=== PATIENT | male | born 1990 | race Hispanic/Latino ===

== ENCOUNTER 2017-05-28 15:15 | Emergency (ER) | payer MEDICAID ==
[2017-05-28 16:04] LABS: Hematocrit 43.2 % (35.5-45.6); Hemoglobin 13.8 gm/dl (11.8-15.2); Mean Corpuscular HGB Conc 32 % (32-34); Mean Corpuscular Volume 79 fl (84-94); Platelet Count 347 K/mm3 (140-440); Red Blood Count 5.46 M/mm3 (3.65-5.03); Red Cell Distribution Width 15.8 % (13.2-15.2); White Blood Count 12.7 K/mm3 (4.5-11.0)
[2017-05-28 16:05] LABS: Mean Corpuscular Hemoglobin 25 pg (28-32)
[2017-05-28 16:06] LABS: Urine Drugs of Abuse Note Disclamer
[2017-05-28 16:12] LABS: Anion Gap 20 mmol/L; Blood Urea Nitrogen 15 mg/dL (9-20); Calcium 9.7 mg/dL (8.4-10.2); Carbon Dioxide 25 mmol/L (22-30); Chloride 97.6 mmol/L (98-107); Glucose 108 mg/dL (75-100); Sodium 139 mmol/L (137-145)
[2017-05-28 16:34] LABS: Bilirubin,Urine NEG (Negative); Blood,Urine NEG (Negative); Ketones,Urine NEG (Negative); Leukocyte Esterase,Urine NEG (Negative); Mucus,Urine FEW /HPF; Nitrite,Urine NEG (Negative); Urobilinogen,Urine < 2.0 mg/dL (<2.0); WBC,Urine < 1.0 /HPF (0.0-6.0)
[2017-05-28 17:03] LABS: Blastocytes % (Manual) 0 %; Eosinophils % (Manual) 0 % (0.0-4.3)
[2017-05-28 17:04] LABS: Diff Status Complete; Giant Platelets Few; Platelet Estimate Consistent w Auto; RBC Morphology Normal
[2017-05-28] MEDS ORDERED: ANTIVERT PO ONE (17:32)
[2017-05-28] MEDS ORDERED: NACL 0.9% 1000 ML 1,000 ML IV ONE (17:33)
--- NOTE | 2017-05-28 18:01 | Emergency Department Report ---
ED Dizziness HPI - General Chief Complaint: Dizziness Stated Complaint: DIZZINESS/BLOOD PRESSURE Time Seen by Provider: 05/28/17 16:33 Source: patient Mode of arrival: Ambulatory Limitations: No Limitations - History of Present Illness Initial Comments: 18-year-old male with psych history presenting to the emergency department complaining of dizziness. Patient states symptoms started approximately 1 day prior to ED arrival. Patient states he was out all day prior to symptoms starting and when he went to bed he thought the symptoms would remit however when he woke up he was still lightheaded and dizzy. Patient states symptoms worse when he stands up, and improves when he sits. Pertinent negatives: Fever/ chills, headache, neck pain, chest pain, shortness of breath, abdominal pain, nausea/vomiting/diarrhea. Patient does not have cardiac history, patient denies history of DVT/PE. MD Complaint: dizziness -: Gradual Description: "room spinning", lightheadedness History of Same: No History of Trauma: No Severity: moderate Improves With: remaining still Worsens With: movement Associated Symptoms: denies: ataxia, chest pain, confusion, diaphoresis, fever/ chills, loss of appetite, malaise, seizure, shortness of breath, syncope, weakness - Related Data Home Medications Medication Instructions Recorded Confirmed Last Taken Citalopram Hydrobromide [celeXA] 40 mg PO DAILY 05/28/17 05/28/[address] [DepaKOTE DR] 750 mg PO DAILY 05/28/17 05/28/17 Unknown Trazodone HCl 150 mg PO QHS 05/28/17 05/28/17 Unknown Ziprasidone [Geodon] 60 mg PO BID 05/28/17 05/28/17 Unknown Allergies Allergy/AdvReac Type Severity Reaction Status Date / Time diphenhydramine HCl Allergy Hives Verified 05/28/17 15:35 [From Benadryl] Penicillins Allergy Anaphylaxis Verified 05/28/17 15:35 chantex Allergy Nausea Uncoded 05/28/17 15:35 ED Review of Systems ROS: Stated complaint: DIZZINESS/BLOOD PRESSURE Other details as noted in HPI Constitutional: denies: chills, fever Eyes: denies: eye pain, eye discharge, vision change ENT: denies: ear pain, throat pain Respiratory: denies: cough, shortness of breath, wheezing Cardiovascular: denies: chest pain, palpitations, dyspnea on exertion, edema, syncope, paroxysmal nocturnal dyspnea Endocrine: no symptoms reported Gastrointestinal: denies: abdominal pain, nausea, diarrhea Genitourinary: denies: urgency, dysuria Musculoskeletal: denies: back pain, joint swelling, arthralgia Skin: denies: rash, lesions Neurological: vertigo. denies: headache, weakness, paresthesias, confusion Psychiatric: denies: anxiety, depression, auditory hallucinations, visual hallucinations, homicidal thoughts, suicidal thoughts Hematological/Lymphatic: denies: easy bleeding, easy bruising ED Past Medical Hx - Past Medical History Previous Medical History?: Yes Hx Hypertension: Yes Hx Psychiatric Treatment: Yes (shizophrenia, bipolar depression) - Surgical History Past Surgical History?: Yes Additional Surgical History: [place] tooth extraction - Social History Smoking Status: Current Every Day Smoker Substance Use Type: Prescribed - Medications Home Medications: Home Medications Medication Instructions Recorded Confirmed Last Taken Type Citalopram Hydrobromide [celeXA] 40 mg PO DAILY 05/28/17 05/28/[address] [DepaKOTE DR] 750 mg PO DAILY 05/28/17 05/28/17 Unknown History Trazodone HCl 150 mg PO QHS 05/28/17 05/28/17 Unknown History Ziprasidone [Geodon] 60 mg PO BID 05/28/17 05/28/17 Unknown History ED Physical Exam - General Limitations: No Limitations General appearance: alert, in no apparent distress - Head Head exam: Present: atraumatic, normocephalic - Eye Eye exam: Present: normal appearance - ENT ENT exam: Present: mucous membranes moist - Neck Neck exam: Present: normal inspection - Respiratory Respiratory exam: Present: normal lung sounds bilaterally. Absent: respiratory distress - Cardiovascular Cardiovascular Exam: Present: regular rate, tachycardia. Absent: systolic murmur, diastolic murmur, rubs, gallop - GI/Abdominal GI/Abdominal exam: Present: soft, normal bowel sounds - Rectal Rectal exam: Present: deferred - Extremities Exam Extremities exam: Present: normal inspection - Back Exam Back exam: Present: normal inspection - Neurological Exam Neurological exam: Present: alert, oriented X3 - Psychiatric Psychiatric exam: Present: normal affect, normal mood - Skin Skin exam: Present: warm, dry, intact, normal color. Absent: rash ED Course Vital Signs 05/28/17 05/28/17 05/28/17 15:28 16:38 19:54 Temperature 99.1 F Pulse Rate 120 H 113 H 105 H Respiratory 20 18 18 Rate Blood Pressure 160/103 Blood Pressure 119/83 132/78 [Right] O2 Sat by Pulse 97 98 100 Oximetry ED Medical Decision Making - Lab Data Result diagrams: 05/28/17 15:38 05/28/17 15:38 - EKG Data -: EKG Interpreted by Me EKG shows normal: sinus rhythm (123), axis (upright), intervals (QRS:90, QTC 449 ), ST-T waves (no acute changes ) - EKG Data When compared to previous EKG there are: previous EKG unavailable - Medical Decision Making He states his symptoms have improved and he is ready to discharge home. Patient 's workup negative for acute findings. His heart rate has decreased to 105 he is no longer symptomatic when he changes position - Differential Diagnosis BPPV, PE, Drug use, anxiety Critical Care Time: No Critical care attestation.: If time is entered above; I have spent that time in minutes in the direct care of this critically ill patient, excluding procedure time. ED Disposition Clinical Impression: Dehydration, Lightheadedness Disposition: DC-01 TO HOME OR SELFCARE Is pt being admited?: No Does the pt Need Aspirin: No Condition: Stable Instructions: Dehydration (ED) Referrals: PRIMARY CARE, [Primary Care Provider] - 3-5 Days Time of Disposition: 19:43
[2017-05-28 19:54] VITALS: BP 132/78
== END 2017-05-28 20:16 | disposition home or self-care (01) ==
LOC: ED 15:15
DX: E86.0 Dehydration (principal); E42 Marasmic kwashiorkor; I10 Essential (primary) hypertension; F31.9 Bipolar disorder, unspecified; F20.9 Schizophrenia, unspecified; F17.200 Nicotine dependence, unspecified, uncomplicated
CPT/HCPCS: 36415; 80048; 80307; 81001; 82550; 85007; 85025; 85379; 93005; 93010; 96360; 99283; G0480; J7030; 80320